=== PATIENT | female | born 1985 | race African-American/Black ===

== ENCOUNTER 2017-04-24 17:53 | Emergency (ER) | payer MEDICAID ==
[~2017-04-24] VITALS: Ht 170.2 cm; Wt 68.0 kg
[2017-04-24 18:00] VITALS: BP 123/86
--- NOTE | 2017-04-24 18:21 | Emergency Room Report ---
History of Present Illness General Chief Complaint: Generalized Weakness Source: Patient Present Illness HPI The patient presents with dysphoria and nausea after ingesting ecstasy an hour before presentation. She called EMS. They transported the patient. She denies any pain in her body. She states she is not at this time. There's no rashes. She denies headache. She denies any other drugs or alcohol. No trauma. No depression. No medical problems. No fevers, dysuria. Allergies: Coded Allergies: ACETAMINOPHEN (Verified Allergy, Unknown, 04/24/17) AMOXICILLIN (Verified Allergy, Unknown, 04/24/17) HYDROCODONE (Verified Allergy, Unknown, 04/24/17) Patient History Past Medical History: see triage record Social History: Reports: alcohol use, drug use, smoking Social History Narrative with room mate Last Menstrual Period: 04/02/17 Now: No Reviewed Nursing Documentation: PMH: Agreed, PSxH: Agreed Nursing Documentation-PMH Past Medical History: No Stated History Review of Systems All Other Systems: negative except mentioned in HPI Physical Exam Vital Signs Date Time Temp Pulse Resp B/P Pulse Ox O2 Delivery O2 Flow Rate FiO2 04/24/17 17:47 97.9 108 20 123/86 98 Room Air Sp02 EP Interpretation: reviewed, normal General Appearance: well appearing, no apparent distress, GCS 15 Head: normocephalic Eyes: bilateral eye PERRL, bilateral eye Scleral Injection ENT: moist mucus membranes Neck: supple Respiratory: lungs clear, normal breath sounds Cardiovascular #1: regular rate, rhythm Cardiovascular #2: 2+ radial (R) Gastrointestinal: normal inspection, non tender, no mass, non-distended, abnormal bowel sounds - decreased Musculoskeletal: back normal, gait/station normal, normal range of motion Neurologic: alert, oriented x3, job analysis manager III-XII nml as tested, motor strength/tone normal, DTRs symmetric, sensory intact, speech normal Psychiatric: depressed affect Skin: normal inspection, warm/dry Medical Decision Making Diagnostic Impression: Primary Impression: Substance abuse ER Course Patient presents with dysphoria and nausea after alleged ingestion of Ecstasy. DDx: adverse reaction to drug, viral syndrome, food poisoning, electrolyte abnormality, UTI, amongst others. Evaluation with EKG, labs. Treatment with IV hydration and zofran. Labs sig for + tox. U preg negative. Improved with observation. Hollis PO well. Discussed 12 step help. Patient stable for outpatient observation and treatment Laboratory Tests Test 04/24/17 18:10 04/24/17 21:30 White Blood Count 11.4 K/UL (4.8-10.8) H Red Blood Count 4.30 M/UL (4.20-5.40) Hemoglobin 13.8 G/DL (12.0-16.0) Hematocrit 41.0 % (37.0-47.0) Mean Corpuscular Volume 95 FL (80-99) Mean Corpuscular Hemoglobin 32.1 PG (27.0-31.0) H Mean Corpuscular Hemoglobin Concent 33.7 G/DL (32.0-36.0) Red Cell Distribution Width 13.0 % (11.6-14.8) Platelet Count 263 K/UL (150-450) Mean Platelet Volume 7.8 FL (6.5-10.1) Neutrophils (%) (Auto) 82.9 % (45.0-75.0) H Lymphocytes (%) (Auto) 11.3 % (20.0-45.0) L Monocytes (%) (Auto) 4.6 % (1.0-10.0) Eosinophils (%) (Auto) 0.1 % (0.0-3.0) Basophils (%) (Auto) 1.1 % (0.0-2.0) Sodium Level 139 mEQ/L (135-145) Potassium Level 3.5 mEQ/L (3.4-4.9) Chloride Level 96 mEQ/L (98-107) L Carbon Dioxide Level 26 mEQ/L (20-30) Anion Gap 17 (5-15) H Blood Urea Nitrogen 12 mg/dL (7-23) Creatinine 1.1 mg/dL (0.5-0.9) H Estimate Glomerular Filtration Rate > 60 mL/min (>60) Glucose Level 71 mg/dL (74-106) L Calcium Level 9.7 mg/dL (8.6-10.2) Total Bilirubin < 0.2 mg/dL (0.0-1.2) Aspartate Amino Transferase (AST) 23 U/L (5-40) Alanine Aminotransferase (ALT) 14 U/L (3-33) Alkaline Phosphatase 47 U/L (35-104) Total Creatine Kinase 249 U/L (26-140) H Total Protein 8.1 g/dL (6.6-8.7) Albumin 4.5 g/dL (3.5-5.2) Globulin 3.6 g/dL Albumin/Globulin Ratio 1.2 (1.0-2.7) Salicylates Level < 1 mg/dL (10-30) L Acetaminophen Level < 10 ug/mL (10-30) L Serum Alcohol 19 mg/dL Urine Color Pale yellow Urine Appearance Clear Urine pH 7 (4.5-8.0) Urine Specific [place] 1.010 (1.005-1.035) Urine Protein 2+ (NEGATIVE) H Urine Glucose (UA) Negative (NEGATIVE) Urine Ketones Negative (NEGATIVE) Urine Occult Blood Negative (NEGATIVE) Urine Nitrite Negative (NEGATIVE) Urine Bilirubin Negative (NEGATIVE) Urine Urobilinogen Normal MG/DL (0.0-1.0) Urine Leukocyte Esterase Negative (NEGATIVE) Urine RBC 0-2 /HPF (0 - 2) Urine WBC 0-2 /HPF (0 - 2) Urine Squamous Epithelial Cells Moderate /LPF (NONE/OCC) H Urine Bacteria Few /HPF (NONE) Urine Mucus Few /LPF (NONE/OCC) H Urine Opiates Screen Negative (NEGATIVE) Urine Barbiturates Screen Negative (NEGATIVE) Phencyclidine (PCP) Screen Negative (NEGATIVE) Urine Amphetamines Screen Positive (NEGATIVE) H Urine Benzodiazepines Screen Negative (NEGATIVE) Urine Cocaine Screen Positive (NEGATIVE) H Urine Marijuana (THC) Screen Positive (NEGATIVE) H EKG Diagnostic Results Rate: normal Rhythm: NSR ST Segments: no acute changes Rhythm Strip Diag. Results EP Interpretation: yes Rhythm: NSR, no PVC's, no ectopy, other - from EKG Chest X-Ray Diagnostic Results Chest X-Ray Ordered: No Last Vital Signs Date Time Temp Pulse Resp B/P Pulse Ox O2 Delivery O2 Flow Rate FiO2 04/24/17 22:21 98.3 81 14 133/77 95 Room Air Status: improved Disposition: HOME, SELF-CARE Condition: Improved Kyler Rizzo M.D. Apr 24, 2017 18:21
[2017-04-24 18:47] LABS: BASOPHILS % (AUTO) 1.1 % (0.0-2.0); EOSINOPHILS % (AUTO) 0.1 % (0.0-3.0); LYMPHOCYTES % (AUTO) 11.3 % (20.0-45.0); MEAN CORPUSCULAR HEMOGLOBIN 32.1 PG (27.0-31.0); MEAN CORPUSCULAR HGB CONC 33.7 G/DL (32.0-36.0); MEAN CORPUSCULAR VOLUME 95 FL (80-99); MEAN PLATELET VOLUME 7.8 FL (6.5-10.1); MONOCYTES % (AUTO) 4.6 % (1.0-10.0); NEUTROPHILS % (AUTO) 82.9 % (45.0-75.0); PLATELET COUNT 263 K/UL (150-450); WHITE BLOOD COUNT 11.4 K/UL (4.8-10.8)
[2017-04-24 19:05] LABS: ACETAMINOPHEN < 10 ug/mL (10-30); ALANINE AMINOTRANSFERASE 14 U/L (3-33); ALBUMIN/GLOBULIN RATIO 1.2 (1.0-2.7); ALCOHOL 19 mg/dL; ANION GAP 17 (5-15); ASPARTATE AMINO TRANSFERASE 23 U/L (5-40); CALCIUM 9.7 mg/dL (8.6-10.2); CARBON DIOXIDE 26 mEQ/L (20-30); CHLORIDE 96 mEQ/L (98-107); CREATININE 1.1 mg/dL (0.5-0.9); GLOMERULAR FILTRATION RATE > 60 mL/min (>60); HEMOLYSIS 3; POTASSIUM 3.5 mEQ/L (3.4-4.9); SODIUM 139 mEQ/L (135-145); TOTAL PROTEIN 8.1 g/dL (6.6-8.7)
[2017-04-24 21:38] LABS: APPEARANCE,URINE CLEAR; KETONES,URINE NEGATIVE (NEGATIVE); LEUKOCYTE ESTERASE ,URINE NEGATIVE (NEGATIVE); NITRITE,URINE NEGATIVE (NEGATIVE); PH,URINE 7 (4.5-8.0); PROTEIN,URINE 2+ (NEGATIVE); UROBILINOGEN,URINE NORMAL MG/DL (0.0-1.0)
[2017-04-24 21:50] LABS: BACTERIA,URINE FEW /HPF; MUCUS,URINE FEW /LPF (NONE/OCC); RBC,URINE 0-2 /HPF (0 - 2); SQUAMOUS EPITHELIAL CELL,UR MODERATE /LPF (NONE/OCC); WBC,URINE 0-2 /HPF (0 - 2)
[2017-04-24 22:01] VITALS: BP 133/77
[2017-04-24 22:21] VITALS: BP 133/77
--- NOTE | 2017-04-28 18:24 | Cardiology Report ---
APPROVED REPORT EKG Measurement Heart [id number] Normal sinus rhythm Possible Left atrial enlargement Septal infarct, age undetermined Abnormal ECG
== END 2017-04-24 22:33 | disposition home or self-care (01) ==
LOC: EDBD 17:53 → EMR 18:25
DX: F19.10 Other psychoactive substance abuse, uncomplicated (principal); Z88.6 Allergy status to analgesic agent; Z88.1 Allergy status to other antibiotic agents; F17.200 Nicotine dependence, unspecified, uncomplicated
CPT/HCPCS: 36415; 80053; 80300; 80329; 81003; 82550; 85025; 93005; 96360; 96374; 99284; J2405; 81025